=== PATIENT | female | born 1965 | race American Indian/Alaskan Native ===

== ENCOUNTER 2018-07-28 12:00 | Emergency (ER) | payer OTHER ==
[2018-07-28 12:16] VITALS: BP 144/71
[2018-07-28] MEDS ORDERED: TORADOL IM ONE (12:49)
--- NOTE | 2018-07-28 12:50 | Emergency Department Report ---
Blank Doc - Documentation Documentation: Patient is a 53-year-old female who has had 2-3 days of left sided headache that she states is a sharp shooting pain. Patient denies any trauma or sore throat cough congestion. Patient does state that she does feel fullness to the left ear as well. Patient has a history of hypertension and was seen yesterday in urgent care. Patient is on blood pressure meds at this time and blood pressure was relatively within normal limits on her arrival here today. Patient states blood pressures are better today than it was yesterday at urgent care. Patient does not have a history of headaches therefore CT will be done to establish baseline. Patient was given 60 mg Toradol IM for the headache.
--- NOTE | 2018-07-28 13:45 | Cat Scan Report ---
CT HEAD WITHOUT CONTRAST INDICATION: Left-sided headache. COMPARISON: 04/12/2010. FINDINGS: Noncontrast head CT again demonstrates normal ventricles and sulci without acute or recent infarct, hemorrhage or mass effect or midline shift. No abnormal extra axial fluid collections. Stable posterior fossa with right occipital craniotomy changes. Grossly preserved basilar cisterns. Normal imaged eye globes. Somewhat hypoplastic frontal sinuses. Clear remainder imaged paranasal sinuses and mastoid air cells. Atherosclerotic ICA and vertebral artery calcifications. Normal remainder calvarium and scalp. Small radiopaque dental materials. CONCLUSION: No acute intracranial CT abnormality or significant interval change, as described. Thank you for the opportunity to participate in this patient's care.
--- NOTE | 2018-07-28 14:13 | Emergency Department Report ---
ED Headache HPI - General Chief Complaint: Headache Stated Complaint: LFT SIDE HEAD SHARP PAIN Time Seen by Provider: 07/28/18 12:41 Source: patient Exam Limitations: no limitations - History of Present Illness Initial Comments: This is a 53-year-old -Italian female who presents with headache and left shoulder pain for 2 days. She reports headache is on the left frontal side. She describes pain as sharp stabbing pain. Patient reports she was seen in Urgent Care yesterday and told to follow up in the emergency room because her blood pressure was elevated. She admits to past medical history of DM II and hypertension. She ran out of medication due to car being reposed and unable to afford prescriptions. She reports pain to left shoulder is discomfort and may be related to sleeping position. She denies numbness or tingling, swelling, or recent injury, sore throat, cough, fever, or congestion. Timing/Duration: 24 hours Quality: constant, sharp, throbbing Head Injury Location: temporal Recent Head Trauma: no recent headache/trauma Modifying Factors: improves with: medication Associated Symptoms: denies symptoms Allergies/Adverse Reactions: Allergies No Known Allergies Allergy (Unverified 07/28/18 12:16) Home Medications: Ambulatory Orders Ibuprofen [Motrin 800 MG tab] 800 mg PO Q8HR PRN #12 tablet 07/28/18 ED Review of Systems ROS: Stated complaint: LFT SIDE HEAD SHARP PAIN Other details as noted in HPI Constitutional: denies: chills, fever Respiratory: denies: cough, shortness of breath, wheezing Cardiovascular: denies: chest pain, palpitations Gastrointestinal: denies: abdominal pain, nausea, diarrhea Musculoskeletal: arthralgia (left shoulder pain). denies: back pain, joint swelling Skin: denies: rash, lesions Neurological: headache. denies: weakness, paresthesias Psychiatric: denies: anxiety, depression ED Past Medical Hx - Past Medical History Hx Hypertension: Yes Hx Diabetes: Yes - Surgical History Past Surgical History?: No - Social History Smoking Status: Never Smoker Substance Use Type: None - Medications Home Medications: Home Medications Medication Instructions Recorded Confirmed Last Taken Type Ibuprofen [Motrin 800 MG tab] 800 mg PO Q8HR PRN #12 tablet 07/28/18 Unknown Rx ED Physical Exam - General Limitations: No Limitations General appearance: alert, in no apparent distress, obese - Neck Neck exam: Present: normal inspection - Respiratory Respiratory exam: Present: normal lung sounds bilaterally. Absent: respiratory distress - Cardiovascular Cardiovascular Exam: Present: regular rate, normal rhythm. Absent: systolic murmur, diastolic murmur, rubs, gallop - GI/Abdominal GI/Abdominal exam: Present: soft, normal bowel sounds - Expanded Upper Extremity Exam Left Shoulder Exam: Present: full ROM (pain with ROM). Absent: tenderness, swelling , abrasion, laceration, crepidus, dislocation, tenderness over AC joint Upper Arm exam: Present: normal inspection, full ROM Elbow exam: Present: normal inspection, full ROM Forearm Wrist exam: Present: normal inspection, full ROM Hand Wrist exam: Present: normal inspection, full ROM Neuro motor exam: Present: wrist extension intact, thumb opposition intact, thumb IP flexion intact, thumb adduction intact, fingers 2-5 abduction intact Neurosensory exam: Present: radial nerve intact, ulnar nerve intact, median nerve intact Vascular: Present: normal capillary refill, radial pulse (+2) - Neurological Exam Neurological exam: Present: alert, oriented X3 - Psychiatric Psychiatric exam: Present: normal affect, normal mood - Skin Skin exam: Present: warm, dry, intact, normal color. Absent: rash ED Course Vital Signs 07/28/18 07/28/18 07/28/18 12:13 13:02 13:32 Temperature 99.2 F Pulse Rate 94 H Respiratory 18 18 18 Rate Blood Pressure 144/71 O2 Sat by Pulse 99 Oximetry ED Medical Decision Making - Radiology Data Radiology results: report reviewed, image reviewed CT HEAD WITHOUT CONTRAST INDICATION: Left-sided headache. COMPARISON: 04/12/2010. FINDINGS: Noncontrast head CT again demonstrates normal ventricles and sulci without acute or recent infarct, hemorrhage or mass effect or midline shift. No abnormal extra axial fluid collections. Stable posterior fossa with right occipital craniotomy changes. Grossly preserved basilar cisterns. Normal imaged eye globes. Somewhat hypoplastic frontal sinuses. Clear remainder imaged paranasal sinuses and mastoid air cells. Atherosclerotic ICA and vertebral artery calcifications. Normal remainder calvarium and scalp. Small radiopaque dental materials. CONCLUSION: No acute intracranial CT abnormality or significant interval change, as described. - Medical Decision Making This is a 53 y.o. female that presents with headache for 2 days. History of diabetes mellitus type 2 and hypertension. Patient is stable and was examined by me. CT of head obtained and dictated by radiologist. Report reviewed by myself in no acute findings. Given toradol 30 milligrams IM once in ER. Follow up with PCP. Start ibuprofen 800 mg by mouth 3 times a day when necessary for migraine headaches. No further questions noted by the patient. Discharged home in stable condition. Follow up with PCP in 24-72 hours. Critical care attestation.: If time is entered above; I have spent that time in minutes in the direct care of this critically ill patient, excluding procedure time. ED Disposition Clinical Impression: Migraine Qualifiers: Migraine type: without aura Status migrainosus presence: with status migrainosus Intractability: not intractable Qualified Code(s): G43.001 - Migraine without aura, not intractable, with status migrainosus Disposition: TO HOME OR SELFCARE Is pt being admited?: No Does the pt Need Aspirin: No Condition: Stable Instructions: Migraine Headache (ED) Additional Instructions: Take medication at start of headache. Moderate caffeine intake. Eat at scheduled times or 3 meals a day with snacks. Follow up with primary care provider in 24-72 hours. Prescriptions: Ibuprofen [Motrin 800 MG tab] 800 mg PO Q8HR PRN #12 tablet PRN Reason: Pain , Severe (7-10) Referrals: KEENAN APARICIO MD [Staff Physician] - 3-5 Days [facility] [Provider Group] - 3-5 Days [facility] [Provider Group] - 3-5 Days Forms: Work/School Release Form(ED) Time of Disposition: 14:12 Print Language: SYRIAC
== END 2018-07-28 14:23 | disposition home or self-care (01) ==
LOC: ED 12:00
DX: G43.909 Migraine, unspecified, not intractable, without status migrainosus (principal); I10 Essential (primary) hypertension; E11.9 Type 2 diabetes mellitus without complications
CPT/HCPCS: 70450; 96372; 99283; J1885

== ENCOUNTER 2019-12-25 17:41 | Emergency (ER) | payer SELFPAY ==
--- NOTE | 2019-12-25 18:31 | Event Note ---
ED Screening Note ED Screening Note: right lower back pain radiates down the right lower leg that began yesterday morning took ibuprofen states she had it once before a long time ago no fall or injury no numbness or weakness no bowel or bladder incontinence +urinary frequency states she recently began working out PMHx DM, HTN no allergies to meds menopause This initial assessment/diagnostic orders/clinical plan/treatment(s) is/are subject to change based on patients health status, clinical progression and re- assessment by fellow clinical providers in the ED. Further treatment and workup at subsequent clinical providers discretion. Patient/guardian urged not to elope from the ED as their condition may be serious if not clinically assessed and managed. Initial orders include: UA
[2019-12-25 19:53] LABS: Bilirubin,Urine NEG (Negative); Blood,Urine SM (Negative); Color,Urine Straw (Yellow); Urobilinogen,Urine < 2.0 mg/dL (<2.0)
--- NOTE | 2019-12-25 22:07 | Emergency Department Report ---
ED Back Pain/Injury HPI - General Chief Complaint: Back Pain/Injury Stated Complaint: RT SIDE HIP PAIN/PRESSURE Time Seen by Provider: 12/25/19 18:28 Source: patient Limitations: No Limitations - History of Present Illness Complaint: back pain -: days(s) (3) Similar Symptoms Previously: No Place: home Radiation: none Severity: moderate Quality: sharp (burning pain down buttocks and leg) Consistency: constant Improves With: none Worsens With: none Context: other (started this new hip hop workout plan that resulted in pain to the right hip pain) Associated Symptoms: denies: cough, difficulty urinating, fever/chills, headaches, abdominal pain, loss of appetite, shortness of breath - Related Data Previous Rx's Medication Instructions Recorded Last Taken Type Ibuprofen [Motrin 800 MG tab] 800 mg PO Q8HR PRN #12 tablet 07/28/18 Unknown Rx Ketorolac [Toradol] 10 mg PO Q6H PRN #15 tablet 12/25/19 Unknown Rx methOCARBAMOL [Robaxin TAB] 750 mg PO Q8H PRN #14 tablet 12/25/19 Unknown Rx Allergies Allergy/AdvReac Type Severity Reaction Status Date / Time No Known Allergies Allergy Unverified 07/28/18 12:16 ED Review of Systems ROS: Stated complaint: RT SIDE HIP PAIN/PRESSURE Other details as noted in HPI Comment: All other systems reviewed and negative ED Past Medical Hx - Past Medical History Previous Medical History?: Yes Hx Hypertension: Yes Hx Diabetes: Yes Additional medical history: HIGH CHOLESTEROL - Surgical History Past Surgical History?: No - Social History Smoking Status: Never Smoker Substance Use Type: None - Medications Home Medications: Home Medications Medication Instructions Recorded Confirmed Last Taken Type Ibuprofen [Motrin 800 MG tab] 800 mg PO Q8HR PRN #12 tablet 07/28/18 Unknown Rx Ketorolac [Toradol] 10 mg PO Q6H PRN #15 tablet 12/25/19 Unknown Rx methOCARBAMOL [Robaxin TAB] 750 mg PO Q8H PRN #14 tablet 12/25/19 Unknown Rx ED Physical Exam - General Limitations: No Limitations General appearance: alert, in no apparent distress - Head Head exam: Present: atraumatic, normocephalic - Eye Eye exam: Present: normal appearance - ENT ENT exam: Present: mucous membranes moist - Neck Neck exam: Present: normal inspection - Respiratory Respiratory exam: Present: normal lung sounds bilaterally. Absent: respiratory distress - Cardiovascular Cardiovascular Exam: Present: regular rate, normal rhythm. Absent: systolic murmur, diastolic murmur, rubs, gallop - GI/Abdominal GI/Abdominal exam: Present: soft, normal bowel sounds - Extremities Exam Extremities exam: Present: normal inspection - Back Exam Back exam: Present: normal inspection, tenderness (to right sciatic and sacroiliac region. Pain with extension of the sciatic nerve. Negative straight leg raise and Yesenia's test) - Neurological Exam Neurological exam: Present: alert, oriented X3, CN II-XII intact, normal gait - Psychiatric Psychiatric exam: Present: normal affect, normal mood - Skin Skin exam: Present: warm, dry, intact, normal color. Absent: rash ED Course Vital Signs 12/25/19 18:37 Temperature 98.9 F Pulse Rate 102 H Respiratory 20 Rate Blood Pressure 155/72 O2 Sat by Pulse 94 Oximetry Critical care attestation.: If time is entered above; I have spent that time in minutes in the direct care of this critically ill patient, excluding procedure time. ED Disposition Clinical Impression: Sciatica Disposition: DC-01 TO HOME OR SELFCARE Is pt being admited?: No Does the pt Need Aspirin: No Condition: Stable Instructions: Lumbar Radiculopathy (ED), Arthralgia (ED) Prescriptions: methOCARBAMOL [Robaxin TAB] 750 mg PO Q8H PRN #14 tablet PRN Reason: Pain, Moderate (4-6) Ketorolac [Toradol] 10 mg PO Q6H PRN #15 tablet PRN Reason: Pain Referrals: MERON PRUETT MD [Primary Care Provider] - 3-5 Days BETO WALSH MD [Staff Physician] - 3-5 Days [facility] [Provider Group] - 3-5 Days
[2019-12-25] MEDS ORDERED: IBUPROFEN 800 MG TAB PO ONE (22:23)
[2019-12-25 22:31] VITALS: BP 137/77
== END 2019-12-25 22:32 | disposition home or self-care (01) ==
LOC: ED 17:41
DX: M54.31 Sciatica, right side (principal); M25.551 Pain in right hip; I10 Essential (primary) hypertension; E11.9 Type 2 diabetes mellitus without complications; E78.00 Pure hypercholesterolemia, unspecified; Z79.899 Other long term (current) drug therapy
CPT/HCPCS: 81001; 87086; 99283